=== PATIENT | female | born 1950 | race Caucasian/White ===

== ENCOUNTER 2016-10-27 18:31 | Emergency (ER) | payer BC ==
[2016-10-27 18:42] VITALS: BP 139/76
[2016-10-27] MEDS ORDERED: Ibuprofen TAB* 600 MG PO ONE (19:28)
--- NOTE | 2016-10-27 19:33 | ED ---
Lower Extremity - HPI Summary HPI Summary: 65F presents with muscle spasms in bilateral legs since . On Saturday she states that she had the flu. She had fever, body aches that have resolved. She states that starting night she developed the spasms from her buttock to her knee. She has not taken anything for the pain. It is affecting both legs equally. She denies any rash, chest pain, or SOB. She is not a smoker, she denies any pain or swelling in her calves. She denies any family or personal history of blood clots, hormone usage, or cancer. - History of Current Complaint Chief Complaint: EDExtremityLower Stated Complaint: MUSCLE SPASMS IN THIGHS Time Seen by Provider: 10/27/16 19:20 Pain Intensity: 7 - Allergies/Home Medications Allergies/Adverse Reactions: Allergies Allergy/AdvReac Type Severity Reaction Status Date / Time Gluten Meal Allergy Arthritis Verified 10/27/16 18:38 flair up Lac Bovis Allergy Arthritis Verified 10/27/16 18:38 [From Resource Dairy Thick] flair up Sodium Laureth Sulfate Allergy Swelling Verified 10/27/16 18:38 Starch Allergy Arthritis Verified 10/27/16 18:38 [From Resource Dairy Thick] flair up Tartrazine Allergy Arthritis Verified 10/27/16 18:38 [From Resource Dairy Thick] flair up Yellow Dye Allergy Arthritis Verified 10/27/16 18:38 [From Resource Dairy Thick] flair up PMH/Surg Hx/FS Hx/Imm Hx Endocrine/Hematology History: Denies: Hx Diabetes Cardiovascular History: Denies: Hx Hypertension, Hx Pacemaker/ICD Respiratory History: Denies: Hx Asthma History: Denies: Hx Renal Disease Musculoskeletal History: Denies: Hx Osteoporosis Sensory History: Denies: Hx Hearing Aid Psychiatric History: Denies: Hx Panic Disorder - Surgical History Surgery Procedure, Year, and Place: PARTIAL LEFT BREAST LUMPECTOMY - BENIGN. APPENDECTOMY,. HYSTERECTOMY,. LEFT KNEE - ARTHROSCOPIC FOR ARTHRITIS. TONSILS Infectious Disease History: No Infectious Disease History: Denies: Traveled Outside the [place] in Last 30 Days - Family History Known Family History: Negative: Blood Disorder - Social History Alcohol Use: Occasionally Alcohol Amount: 1/2 glass a week Substance Use Type: Reports: None Smoking Status (MU): Never Smoked Tobacco Review of Systems Negative: Fever Negative: Chest Pain Negative: Shortness Of Breath Positive: Myalgia - muscle spams of thigh All Other Systems Reviewed And Are Negative: Yes Physical Exam Triage Information Reviewed: Yes Vital Signs On Initial Exam: Initial Vitals Temp Pulse Resp BP Pulse Ox 97.6 F 70 18 139/76 100 10/27/16 18:38 10/27/16 18:38 10/27/16 18:38 10/27/16 18:38 10/27/16 18:38 Vital Signs Reviewed: Yes Appearance: Positive: Well-Appearing Skin: Positive: Warm, Dry Head/Face: Positive: Normal Head/Face Inspection Eyes: Positive: Normal, Conjunctiva Clear Respiratory/Lung Sounds: Positive: Clear to Auscultation, Breath Sounds Present Cardiovascular: Positive: Normal, RRR Musculoskeletal: Positive: Strength/ROM Intact - of lower extremity, Other - good pulses, nontender to palpation of thighs and calves. Negative: Yosi Sign Left, Yosi Sign Right, Edema Left, Edema Right Diagnostics - Vital Signs Vital Signs Temp Pulse Resp BP Pulse Ox 10/27/16 18:38 97.6 F 70 18 139/76 100 - Laboratory Result Diagrams: 10/27/16 19:35 10/27/16 19:35 Lab Statement: Any lab studies that have been ordered have been reviewed, and results considered in the medical decision making process. Lower Extremity Course/Dx - Course Course Of Treatment: 65F presents with muscle spasms for 2 days. had flu four days ago that resolved. on exam neg homans sign, no edema noted. nontender to palpation. Wells criteria for DVT low risk 0 as has no risk factors besides age. ordered labs normal. discussed results with patient that should apply ice/ heat and can use OTC topical products such as bengay. patient understands and agrees with plan - Diagnoses Differential Diagnosis/HQI/PQRI: Positive: Dislocation, Fracture (Closed), Sprain, Strain Provider Diagnoses: Muscle spasms of both lower extremities Discharge - Discharge Plan Condition: Good Disposition: HOME Patient Education Materials: Muscle Spasm (ED) Referrals: Ken Cordova MD [Primary Care Provider] - Additional Instructions: Apply heat/ice whatever feels more comfortable Massage area Take ibuprofen or Tylenol for pain every 6 hours Return to ED if develop any redness, swelling, chest pain, or SOB, or any new or worsening symptoms
[2016-10-27 19:46] LABS: Hematocrit 40 % (35-47); Hemoglobin 13.4 g/dl (12.0-16.0); Mean Corpuscular HGB Conc 34 g/dl (31-36); Mean Corpuscular Hemoglobin 30 pg (27-31); Mean Corpuscular Volume 89 fL (80-97); Mean Platelet Volume 9 um3 (7.4-10.4); Red Blood Count 4.43 10^6/ul (4.0-5.4); Red Cell Distribution Width 12 % (10.5-15); White Blood Count 4.5 10^3/ul (3.5-10.8)
[2016-10-27 20:07] LABS: Albumin 4.4 g/dL (3.2-5.2); BUN/Creatinine Ratio 6.6 (8-20); Calcium 9.4 mg/dL (8.6-10.3); EGFR African American 126.6 (>60); EGFR Non-African American 98.4 (>60); Globulin 2.7 g/dL (2-4); Magnesium 2.1 mg/dL (1.9-2.7); Potassium 3.7 mmol/L (3.5-5.0); Total Bilirubin 0.5 mg/dL (0.2-1.0); Total Protein 7.1 g/dL (6.4-8.9)
== END 2016-10-27 20:29 | disposition home or self-care (01) ==
LOC: ED 18:31
DX: M62.838 Other muscle spasm (principal); M79.1 Myalgia
CPT/HCPCS: 36415; 80053; 83735; 85025; 99282; A9270-GY

== ENCOUNTER 2022-06-29 09:47 | Observation (INO) ==
[~2022-06-29 09:47] MED LIST: Acetaminophen IV 1 GM/100ML 1,000 MG/100 ML BAG IV ONE; Buffered Lidocaine 1% SYRIN 1 ml INTRADERM ONE; Dexamethasone IV 4 MG/ML VIAL 1 ml VIAL ONE; Lactated Ringers 1000 ml BAG 1,000 ML IV SCH; Midazolam 5 mg/5 ml VIAL 1 mg/ml 5 ml VIAL (5 mg) ONE; Ondansetron 4 mg VIAL 2 MG/ML 2 ml VIAL ONE; Phenylephrine IV 10 MG/ML 1 ml VIAL ONE; Propofol 10 MG/ML 20 ML BTL ONE; fentaNYL 100 mcg/2 ml 50 MCG/ML VIAL ONE
[2022-06-29] MEDS ORDERED: ceFAZolin 2 GM PREMIX 2 GM/50 ML BAG ONE (10:01)
[2022-06-29] MEDS ORDERED: Magnesium Hydroxide LIQ 30 ML UDC PO PRN (14:25)
[2022-06-29] MEDS ORDERED: Lactulose 30 ml UDC PO PRN (14:25)
[2022-06-29] MEDS ORDERED: Morphine 2 MG/ML SYRINGE IV PRN (14:25)
[2022-06-29] MEDS ORDERED: Ondansetron ODT 4 mg TAB 4 MG TAB PO PRN (14:25)
[2022-06-29] MEDS ORDERED: Ondansetron 4 mg VIAL 2 MG/ML 2 ml VIAL IV PRN ×2 (14:25→15:06)
[2022-06-29] MEDS ORDERED: fentaNYL 100 mcg/2 ml 50 MCG/ML VIAL IV PRN (15:06)
[2022-06-29] MEDS ORDERED: Naloxone 0.4 mg VIAL 0.4 mg/ml 1 ml VIAL IV PRN (15:06)
[2022-06-29] MEDS ORDERED: Ondansetron 4 mg VIAL 2 MG/ML 2 ml VIAL ONE (15:16)
[2022-06-29] MEDS: Lactated Ringers 1000 ml BAG 1,000 ML IV SCH (17:59)
[2022-06-29] MEDS: Magnesium Hydroxide LIQ 30 ML UDC PO SCH (22:26)
[2022-06-29] MEDS: ceFAZolin 1 GM ADVAN 1 GM in NS 0.9% 50 ML 50 ML IVPB SCH (22:28)
[2022-06-30] MEDS: ceFAZolin 1 GM ADVAN 1 GM in NS 0.9% 50 ML 50 ML IVPB SCH ×2 (04:38→13:09)
[2022-06-30] MEDS: Lactated Ringers 1000 ml BAG 1,000 ML IV SCH (04:42)
[2022-06-30 06:36] LABS: Hematocrit 33 % (35-47); Hemoglobin 11.3 g/dL (12.0-16.0); Mean Platelet Volume 8.6 fL (7.4-10.4); Platelet Count 153 10^3/uL (150-450)
[2022-06-30 07:01] LABS: Calcium 8.6 mg/dL (8.6-10.3); Potassium 4.2 mmol/L (3.5-5.0); eGFR CKD-EPI 89.3 (>60)
[2022-06-30] MEDS ORDERED: NS 0.9% 1000 ml BAG 1,000 ML IV ONE ×3 (08:13→11:37)
[2022-06-30] MEDS: Magnesium Hydroxide LIQ 30 ML UDC PO SCH (08:17)
[2022-06-30] MEDS ORDERED: Vitamin THERAPEUTIC TAB PO SCH (09:00)
[2022-06-30] MEDS ORDERED: Cholecalciferol (VIT D3) 1,000 unit TAB PO SCH (12:00)
[2022-06-30 14:10] VITALS: BP 98/60
== END 2022-06-30 16:00 | disposition home or self-care (01) ==
LOC: SSU 09:47 → OR 09:47
PROVIDERS: ADMIT Orthopaedic Surgery Adult Reconstructive Orthopaedic Surgery; ATTEND Orthopaedic Surgery Adult Reconstructive Orthopaedic Surgery